=== PATIENT | female | born 1980 | race Caucasian/White ===

== ENCOUNTER 2020-05-20 11:41 | Observation (INO) | payer MEDICAID, SELFPAY ==
--- NOTE | 2020-05-17 14:10 | PCM.HPOB.BLA ---
- Problem List (1) Menorrhagia Status: Acute History and Physical Date of Admission: 05/20/20 DATE OF SERVICE: May 11, 2020 ? PROBLEM:?RLQ pain, menorrhagia with irregular cycle ? DIAGNOSIS:?Pelvic pain and DUB ? PAST SURGICAL HISTORY:? PAST SURGICAL HISTORY PAST SURGICAL HISTORY Procedure Laterality Date ? CONIZATION OF CERVIX, LEEP ? ? ? S IMPLANT CONTROL ESSURE ? ? ? TOOTH EXTRACTION ? ? ? PAST MEDICAL HISTORY:? PAST MEDICAL HISTORY PAST MEDICAL HISTORY Diagnosis Date ? Low blood sugar ? ? SUBJECTIVE:?Patient reports menorrhagia with irregular cycle. Currently no vaginal bleeding. She has had constant RLQ pain that is daily.? ? SOCIAL HISTORY:? SOCIAL HISTORY Social History ? Tobacco Use ? Smoking status: Current Every Day Smoker ? ? Packs/day: 1.50 ? Smokeless tobacco: Never Used Substance Use Topics ? Alcohol use: Yes ? ? Comment: social ? Drug use: No TSH 1.64 Hgb 14.7 Pelvic US showing a fibroid uterus ?10.7x5.9x7.1 cm in size. Largest fibroid is 4 cm. There is a 2.2 cm simple right ovarian cyst. ? ? OBJECTIVE: ? BP 128/90 ? Pulse 68 ? Resp 16 ? Ht 5' 3.75 (1.619 m) ? Wt 230 lb 3.2 oz (104.4 kg) ? LMP 11/22/2019 ? BMI 39.82 kg/m? ? ? HEENT: ?Normocephalic, atraumatic, Mucus membranes moist without lesions. ? NECK: ???Soft and Supple. ?No adenopathy , thyromegaly or bruits. ? SKIN: No lesions. ? CHEST: Clear to auscultation. ?No wheezes or rales. ?Good air exchange. ? HEART: Regular rate and rhythm ?No S3 or S4. ?No gallops or rubs. ? BACK: Nontender with no CVA tenderness. ? ABDOMEN: Soft, non-tender, non-distended, no masses, no hepatosplenomegaly. ? LOWER EXTREMITIES: There was no pitting edema, no palpable cords and no skin changes. ? ? ? ASSESSMENT: ? PLAN:?Recommended medical management for menorrhagia. Patient declines medical management. Discussed that a hysterectomy may not improve her pelvic pain, and could actually worsen the pain due to adhesions. Discussed that a 2.2 cm simple ovarian cyst is most likely a normal physiologic finding, and the cyst has likely resolved at this point. Reviewed risks of oophorectomy, and recommend ovarian preservation. Patient desires a right oophorectomy if there is a cyst present given her persistent RLQ pain. Discussed ANITA TOMLINSON, cysto, possible oophorectomy. The?rationale for the proposed surgery was discussed in addition to risks, benefits, and alternatives. ?General pre- and post-operative care was reviewed. ?Questions were answered. ?After discussion, the patient indicated a desire to proceed with the planned surgery. ? Melani Taylor,?DO
[2020-05-20] VITALS (9 sets, daily range): BP systolic 112–135; BP diastolic 64–90; PULSE 63–74; RESP 16–18; TEMP 36.3–37; O2SAT 96–100; BMI 40.1
--- NOTE | 2020-05-20 | HYST_PTH ---
PATIENT: THONY LÓPEZ LOC: MS3 U#:[id number] AGE/SX: 39/F ROOM: MS312 RE05/20/[address]: Dr. Melani Taylor DO : 1980 BED: 1 DIS: 05/21/2020 SPEC #: [id number] RECD: 05/20/20 12:42 STATUS: JETT REAnjelica #: [id number] SANTA: 05/20/20 00:[address]: Melani Taylor DEPT: SURGICAL PATHOLOGY RECD BY: Cholo Weinstein ENTERED: 05/21/20 08:37 SP TYPE: HYSTERECT OTHR DR: Dr. Mimi Garibay DO Tissues: Uterus, NOS Procedures: Surgery Specimen Level V HEADER OPERATION: ERAS, laparoscopic vaginal hysterectomy, salpingectomy, cystoscopy PRE-OP DIAGNOSIS: Menorrhagia TISSUE SUBMITTED: Uterus, cervix, bilateral fallopian tubes MICROSCOPIC DIAGNOSIS Uterus, cervix, bilateral fallopian tubes, vaginal hysterectomy and bilateral salpingectomy: Cervix - mild chronic cystic cervicitis. Endometrium - proliferative endometrium. Myometrium - intramural leiomyomas (largest measuring 4 cm in greatest dimension). Bilateral fallopian tubes - no pathologic diagnosis. BARAK:melo 05/24/20 MICROSCOPIC DESCRIPTION Slides are reviewed. GROSS DESCRIPTION Received in fixative is one container labeled with the patient's name and designated uterus. The specimen consists of a uterus with attached cervix measuring 11.5 x 6 x 6 cm and weighing 216 gm. Also present free in the container are two fallopian tubes with fimbriated ends with average lengths of 6.5?cm and average diameters of 0.6 cm. The fallopian tubes are not designated. Essure devices are present in the proximal portions of the fallopian tubes and are intact. The fallopian tubes do not contain mass lesions. The endocervical canal measures 3 cm in length and is grossly unremarkable. The elongated endometrial cavity measures 4 x 3.5 cm. The reddish-jacinto endometrium measures up to 0.1 cm in thickness. The myometrium measures 3 cm in greatest thickness and is distorted by multiple spherical nodules ranging in size from 0.2 to 4 cm in greatest dimension. The nodules reveal a whorled appearance without areas of cyst formation or necrosis. [employer] sections are submitted in 11 cassettes as follows: 1 - anterior cervix, 2 - posterior cervix, 3 & 4 - anterior uterine wall, 5 & 6 - posterior uterine wall, 7 - largest myometrial mass, 8 - second largest myometrial mass, 9 - smaller myometrial masses, 10??one fallopian tube, 11 - the other fallopian tube. / AM:melo 05/21/20 TC:2 CPT: 14304
--- NOTE | 2020-05-20 06:33 | EKG12_ITS ---
Test Reason : PRE OP Blood Pressure : / mmHG Vent. Rate : 077 BPM Atrial Rate : 077 BPM P-R Int : 144 ms QRS Dur : 086 ms QT Int : 392 ms P-R-T Axes : 000 042 034 degrees QTc Int : 443 ms Normal sinus rhythm Normal ECG No previous ECGs available Confirmed by RAMÍREZ RUIZ, JAKOB ([id number]), rewrite editor BRANNON BARRAGAN ([id number]) on 05/24/2020 1:31:25 PM Referred By: Melani Taylor Confirmed By:JAKOB ELMORE MD
[2020-05-20 06:56] LABS: Internal QC Validated? YES +Cl - CLEAR BKGD; Pregnancy, Urine Negative Negative
[2020-05-20 07:12] LABS: Hematocrit 44.1 % (37-47); Hemoglobin 14.7 g/dL (12.0-15.0); Mean Corp Hgb Conc 33.3 g/dL (32-36); Mean Corpuscular Hgb 34.1 pg (27.0-32.0); Mean Corpuscular Volume 102.3 fL (81-99); Platelet Count 255 K/mm3 (150-450); RBC Distribution Width CV 13.2 % (11.6-14.6); RBC Distribution Width SD 49.9 fl (35.1-43.9); Red Blood Count 4.31 M/mm3 (4.2-5.4); White Blood Count 12.5 K/mm3 (4.4-11.0)
[2020-05-20 07:21] LABS: Magnesium 1.9 mg/dL (1.6-2.6)
[2020-05-20] MEDS: Phenazopyridine 95 MG Tablet 190 MG PO (07:32)
[2020-05-20] MEDS: Celecoxib 200 MG Capsule 400 MG PO (07:32)
[2020-05-20] MEDS: Gabapentin 600 MG Tablet PO (07:32)
[2020-05-20] MEDS: Acetaminophen 500 MG Tablet 1000 MG PO ×3 (07:33→17:05)
[2020-05-20] MEDS: Scopolamine 1mg/72hr Patch 1 PATCH TRANSDERM. (07:34)
[2020-05-20] MEDS: Enoxaparin 40 MG/0.4 ML Syringe SC (07:35)
[2020-05-20 07:51] LABS: Bedside Glucose 84 mg/dL (70-110)
[2020-05-20] MEDS: Lactated Ringers 1,000 ML 40 ML IV ×2 (08:13→13:44)
[2020-05-20] MEDS: dexAMETHasone 10 MG/ML Vial 8 MG IV (08:13)
[2020-05-20] MEDS: Cefazolin 2 GM in 0.9% Normal Saline 100 ML IV (08:30)
[2020-05-20] MEDS: Bupivacaine Mpf 0.5% 30 ML VIAL (09:01)
[2020-05-20] MEDS: Lubricating Jelly 60 GM Tube 30 GM TOPICAL (09:01)
[2020-05-20] MEDS: Lactated Ringers 1,000 ML 70 ML IV (11:40)
[2020-05-20] MEDS: Ondansetron 4 MG/2 ML Vial IV (11:40)
--- NOTE | 2020-05-20 11:43 | PCM.OPRPT ---
Problem List (1) Menorrhagia Status: Acute (2) Uterine fibroid Status: Acute (3) Pelvic pain Status: Acute Report of Operation Date of Procedure: 05/20/20 Pre-Operative Diagnosis: Menorrhagia, uterine fibroids, pelvic pain Post-Operative Diagnosis: As above Surgery/Procedure Performed:: TLH, BS, cysto Description of Surgical Findings:: Uterus was enlarged with multiple fibroids present. The bilateral ovaries and bilateral fallopian tubes were normal-appearing. The appendix was normal-appearing. The pelvis was normal-appearing. Normal bladder with bilateral ureteral jets noted. resort housekeeper: Sandra Kaiser Type of Anesthesia:: General Anesthesiologist: None Special Medications: None Specimen's removed: Uterus, cervix, bilateral fallopian tubes Drains: Mayo Estimated Blood Loss (mL): 400 Fluids Replaced: 1500 Description of Procedure: The patient was taken to the operating room where general anesthesia was induced. The patient was placed in dorsal lithotomy position using yellowfin stirrups. The patient was prepped and draped in the usual sterile fashion. Beginning at the vagina, a Mayo catheter was inserted under sterile conditions. A weighted speculum was placed to expose the cervix. The cervix was grasped anteriorly with a single-tooth tenaculum. The uterus sounded to 10 cm. Urine manipulator with a cup was inserted. The weighted speculum and tenaculum were then removed. Gloves were changed and attention was turned to the abdominal portion of the case. Local was infiltrated at all port sites. Beginning in the subumbilical area, the skin was first infiltrated and then a 5 mm incision was made through the skin. A 5 mm trocar was placed using direct visualization with the laparoscope. It was confirmed that entry was made into the peritoneal cavity, and CO2 insufflation was initiated. Examination of the peritoneal cavity revealed no signs of injury from entry. See findings as noted above. The patient was then placed in steep Trendelenburg and three more 5 mm trochars were placed, one on the right and 2 on the left in usual fashion. All trocars were placed under direct visualization. The uterus was upheld from below and revealed an enlarged fibroid uterus and normal tubes and ovaries. Beginning on the right side the fallopian tube was lifted towards the anterior abdominal wall to expose the mesosalpinx. Working from distal to proximal to mesosalpinx was sequentially clamped, ligated, and cut using the LigaSure device from distal to proximal in the direction of the cornua. Once the cornea was reached the tube was ligated and cut and removed through the port. Following this, the utero-ovarian ligament was clamped, sealed, and cut the ovarian pedicle was inspected to ensure that there was no bleeding from the edges. Attention was then turned to the other side. Same process was repeated on the left sequentially clamping, ligating, and cutting mesosalpinx being sure to not injure adjacent ovarian tissue or other surrounding structures. The round ligament was then ligated and cut. Following this the anterior leaf of the broad ligament was then taken down on the right side dissecting towards the peritoneal reflection at the base of the bladder and adjacent to the cervix. The process was repeated on the left side side until both sides met and the anterior leaflet was appropriately skeletonized. Once the bladder was appropriately dissected free from the lower anterior uterine segment and the tissue was skeletonized, the uterine arteries were bilaterally clamped and ligated. Pedicles were checked and hemostatic. At the level of the cup of the uterine manipulator, the vaginal vault was incised circumferentially with a monopolar hook. Visualization was difficult posteriorly given the anterior fibroid that was present which was limiting the manipulation of the uterus. Attention was then turned below. There was a very small piece of tissue remaining posteriorly along the vaginal vault which was clamped with a Zara, cut, and suture-ligated. The uterus, cervix, tubes were delivered through the vagina and sent to pathology for review. Bleeding was noted from the left angle and a lahdzf-wo-ldwnn suture was placed. The posterior cuff was run with Vicryl in a running locked fashion. The vaginal vault was then closed from below using 0 Vicryl in an interrupted fashion. The vaginal cuff appeared hemostatic. A cystoscopy was performed noting a normal-appearing bladder with bilateral ureteral jets noted. Gloves were changed and then attention was turned to the abdominal portion of the case again. The pelvis was irrigated and suctioned. Along the left side of the cuff there was some bleeding noted which was cauterized. Hemostasis was then noted. Arrista was placed over the pedicles and cuff. Hemostasis was noted. The abdomen was exsufflated and all ports were removed. All incision sites were then closed with 4-0 Monocryl suture in a subcuticular fashion. At the end of the procedure all sponge, instrument, shock sharp counts were correct. The patient was taken to recovery room in stable condition. Grafts/Implants Used: None - Complications None - Admit VTE Documentation VTE Present on Admission: No VTE Mechan Device Prophylaxis: SCD's
[2020-05-20] MEDS: Ketorolac 30 MG/ML Syringe IV ×2 (13:45→17:05)
[2020-05-20] MEDS: oxyCODONE 5 MG Tablet PO (20:56)
[2020-05-20] MEDS: Docusate Sodium 100 MG Capsule PO (20:57)
[2020-05-21] MEDS: Acetaminophen 500 MG Tablet 1000 MG PO ×2 (00:28→08:53)
[2020-05-21] MEDS: 0.9% Saline Lock 10 ML Syringe IV ×2 (00:28→05:34)
[2020-05-21] MEDS: Ketorolac 30 MG/ML Syringe IV ×2 (00:29→05:33)
[2020-05-21 00:44] VITALS: BP 127/76; PULSE 69; RESP 16; TEMP 36.8; O2SAT 97
[2020-05-21 05:46] VITALS: BP 148/67; PULSE 80; RESP 14; TEMP 36.8; O2SAT 96
[2020-05-21 06:50] VITALS: O2SAT 96
[2020-05-21 07:05] LABS: Hematocrit 35.7 % (37-47); Hemoglobin 11.7 g/dL (12.0-15.0); Mean Corp Hgb Conc 32.8 g/dL (32-36); Mean Corpuscular Hgb 34.2 pg (27.0-32.0); Mean Corpuscular Volume 104.4 fL (81-99); Mean Platelet Vol. 11.2 fl (6.2-12.0); Platelet Count 215 K/mm3 (150-450); RBC Distribution Width CV 13.5 % (11.6-14.6); RBC Distribution Width SD 51.5 fl (35.1-43.9); Red Blood Count 3.42 M/mm3 (4.2-5.4); White Blood Count 18.7 K/mm3 (4.4-11.0)
--- NOTE | 2020-05-21 07:50 | PN.OBGYN_ITS ---
Patient Problems: Active and Suspected Problems Uterine fibroid (Acute) Pelvic pain (Acute) Subjective: Patient is doing well. Ambulating in the hallway without lightheadedness or dizziness. Kenan reg diet without N/V. Spont voiding without difficulty. No CP, SOB, leg pain. Pain well controlled. She desires to go home today. - Physical Exam Vitals/I&O's: Vital Signs Temp Pulse Resp BP Pulse Ox 98.2 F 80 14 148/67 H 96 05/21/20 05:46 05/21/20 05:46 05/21/20 05:46 05/21/20 05:46 05/21/20 05:46 Oxygen Flow Rate (L/min) 6 Oxygen Delivery Method Room Air Weight: 231 lb 11.293 oz Body Mass Index (BMI) 40.1 Intake and Output for Last 24 Hours 05/19/20 05/20/20 05/21/20 23:59 23:59 23:59 Intake Total 1361.83 / 1361.83 1026.00 / 1026.00 Output Total 960 / 2185 1500 / 1500 Balance 401.83 / -823.17 -474.00 / -474.00 General: Alert, No apparent distress, - - Sitting up in chair Abdomen: Soft, Non-Distended, - - ATTP, non-acute Extremities: No edema, No Calf Tenderness Skin: No rashes Neurological: Neuro grossly intact Psych/Mental Status: Normal Affect, Appropriate Laboratory Results 05/20/20 06:50: Blood Type A POSITIVE, Antibody Screen NEGATIVE 05/20/20 07:16: POC Glucose 84 05/21/20 06:38: WBC 18.7 H, RBC 3.42 L, Hgb 11.7 L, Hct 35.7 L, MCV 104.4 H, MCH 34.2 H, MCHC 32.8, RDW Std Deviation 51.5 H, RDW Coeff of Sheldon 13.5, Plt Count 215, MPV 11.2 Current Medications Acetaminophen (Tylenol) 1,000 mg PO Q6 REPLACED BY [facility] Last Admin: 05/21/20 00:28 Dose: 1,000 mg Documented by: Docusate Sodium (Colace) 100 mg PO BID REPLACED BY [facility] Last Admin: 05/20/20 20:57 Dose: 100 mg Documented by: Enoxaparin Sodium (Lovenox) 40 mg SC DAILY REPLACED BY [facility] Lactated Ringer's () 1,000 mls @ 40 mls/hr IV .Q25H CHAU Stop: 05/21/20 13:04 Last Infusion: 05/21/20 06:38 Dose: 40 mls/hr Documented by: Ketorolac Tromethamine (Toradol (Bkc)) 30 mg IV Q6 [facility]AU Stop: 05/21/20 18:01 Last Admin: 05/21/20 05:33 Dose: 30 mg Documented by: Magnesium Oxide (Mag-Ox 400) 400 mg PO DAILY PRN PRN PRN Reason: Constipation Nutritional Formula (Lactose Free) (Ensure Enlive) 120 ml PO TIDCM REPLACED BY [facility] Ondansetron HCl (Zofran Odt) 4 mg PO Q6H PRN PRN PRN Reason: NAUSEA Oxycodone HCl (Oxyir) 5 - 10 mg PO Q4H PRN PRN PRN Reason: Pain Score 4-10/10 Last Admin: 05/20/20 20:56 Dose: 5 mg Documented by: Sodium Chloride () 10 - 40 ml IV UD PRN PRN Reason: SALINE FLUSH Last Admin: 05/21/20 05:34 Dose: 10 ml Documented by: Medical Necessity - Tobacco Use Smoking Status: Current every day smoker Tobacco Use: Cigarettes Assessment/Plan All Active Problems Menorrhagia (Acute) Uterine fibroid (Acute) Pelvic pain (Acute) POD#1 s/p TLH, BS, cysto - Doing well - HDS - CBC reviewed - Pt desires to go home today and is meeting all milestones to go home. D/c instructions reviewed. Has follow up scheduled in office
--- NOTE | 2020-05-21 07:55 | DCINST_ITS ---
Discharge Diet: No Restrictions Discharge Activity: May not drive while taking narcotic pain medications., May Shower Return to work on:: 07/01/20 - can return at 4 wks with restrictions May resume sexual activity in: 6 weeks - Nothing in the vagina for 6 weeks - this includes no hot tubs, baths, pools, tampons, intercourse Weight Bearing Status: Weight bearing as tolerated Lifting Restrictions: No heavy lifting > 5-10 lbs for 6 weeks Call your doctor if your incision/area has: Increased Pain/ Swelling, Increased Redness, Foul Smelling Discharge, Swelling at the incision site Call your doctor if you observe: Fever of 101 or Higher, Change in Color, Inability to urinate, Inability to have a bowel movement, Using more than one pad per hour - If your vaginal bleeding increases please call. It should be light bleeding, Shortness of breath, Dizziness, Fainting spells, Chest pain, Increased palpitations (irregular heartbeat), Calf discomfort, Uncontrolled pain Suture Line Care: Avoid Pulling/Pushing, Avoid Pinching/Bending Cleanse incision/area with: Soap & Water Allergies/Adverse Reactions: Allergies No Known Allergies Allergy (Verified 05/20/20 07:20) Medications to take at Discharge Truvy 2 tab PO BID 05/13/20 Ibuprofen 200 mg PO Q6H PRN PRN 05/20/20 Docusate Sodium [Colace] 100 mg PO BID PRN PRN #30 cap 05/21/20 Ibuprofen [Motrin] 800 mg PO TID PRN PRN #30 tab 05/21/20 Oxycodone HCl/Acetaminophen [Percocet 5/325] 1 tablet PO Q6H PRN PRN 7 Days #20 tablet 05/21/20 The following prescriptions were given: Docusate Sodium [Colace] 100 mg PO BID PRN PRN #30 cap PRN Reason: Constipation Transmission Status: Pending to [facility] Ibuprofen [Motrin] 800 mg PO TID PRN PRN #30 tab PRN Reason: Pain Score 1-1010 Transmission Status: Pending to [facility] Oxycodone HCl/Acetaminophen [Percocet 5/325] 1 tablet PO Q6H PRN PRN 7 Days #20 tablet PRN Reason: Pain Score 6-10/10 Transmission Status: Sent to [facility] Primary Care Physician: Mimi Garibay DO [Primary Care Provider] - Test Results: Test results from this visit will be discussed in further detail at your follow- up appointment, if applicable. Please Follow Up With: Melani Taylor DO When: 1-2 weeks and then 6 weeks
[2020-05-21 09:45] VITALS: BP 148/83; PULSE 71; RESP 18; TEMP 36.8; O2SAT 98
== END 2020-05-21 10:00 | disposition home or self-care (01) ==
LOC: SDC 12:17 → MS3 12:17
PROVIDERS: Anesthesiology; Admitting Provider Obstetrics & Gynecology; PCP Internal Medicine; Referring Provider Obstetrics & Gynecology; Visit Provider Obstetrics & Gynecology
PROC: 0UT9FZZ Resection of Uterus, Via Natural or Artificial Opening With Percutaneous Endoscopic Assistance (ICD-10-PCS; CPT 58571; principal; 2020-05-20 08:25)
DX: D25.1 Intramural leiomyoma of uterus (principal); Z11.59 Encounter for screening for other viral diseases; N92.1 Excessive and frequent menstruation with irregular cycle; F17.210 Nicotine dependence, cigarettes, uncomplicated
CPT/HCPCS: 00940; 58571; 36415; 81025; 82962; 83735; 85027; 86850; 86900; 86901; 87635; 88307; 93005; 96374; 96376; 99218; 99251; 99406; G2023; J7120; A4216; G0378; G0379; G0463; J2405; U0003

== ENCOUNTER → 2022-09-11 | Outpatient (CLI) | payer MEDICAID, SELFPAY ==
[2022-09-11 10:36] LABS: Erythrocyte Sedimentation Rate 8 mm/hr (0-30)
[2022-09-11 10:38] LABS: Absolute Lymphocyte Count 2.81 X10^3/uL (0.83-4.51); Basophil# 0.09 X10^3/uL; Basophil% 0.7 % (0-1); Eosinophil# 0.22 X10^3/uL; Eosinophils% 1.8 % (0-5); Hematocrit 47.8 % (37-47); Hemoglobin 16.7 g/dL (12.0-15.0); Lymphocyte # 2.81 X10^3/ul (0.83-4.51); Mean Corp Hgb Conc 34.9 g/dL (32-36); Mean Corpuscular Hgb 34.2 pg (27.0-32.0); Mean Platelet Vol. 11.8 fl (6.2-12.0); Monocyte% 8.2 % (0-10); NRBC Flagged by Analyzer 0 % (0-5); Neutrophil # 8.03 X10^3/uL (2.7-7.7); Neutrophil % 65.9 % (47-70); Platelet Count 245 K/mm3 (150-450); RBC Distribution Width CV 13.2 % (11.6-14.6); RBC Distribution Width SD 48.1 fl (35.1-43.9); Red Blood Count 4.88 M/mm3 (4.2-5.4); White Blood Count 12.2 K/mm3 (4.4-11.0)
[2022-09-11 10:55] LABS: ALB/GLOB Ratio 1.2 RATIO (0.9-2.4); AST(SGOT) 16 U/L (15-37); Alanine Aminotransfer ALT/SGPT 20 U/L (13-56); Albumin, Serum 3.9 g/dL (3.2-5.0); Alkaline Phosphatase 63 U/L (45-117); Anion Gap 9 (5-15); BUN 9 mg/dL (7-18); BUN/Creat Ratio 14.8 RATIO (10-20); CRP < 2.90 mg/L (0.0-3.0); Chloride 102 mmol/L (98-107); Creatinine, Serum 0.61 mg/dL (0.55-1.02); EST Glomerular Filtration Rate 115 mL/min (>60); Est Glom Filt Rate - Afr Amer 139 mL/min (>60); Globulin 3.3 g/dL (2.2-4.2); Glucose 98 mg/dL (74-106); LDH 170 U/L (84-246); Protein, Total 7.2 g/dL (6.4-8.2); Sodium Level 139 mmol/L (136-145)
[2022-09-12 15:02] LABS: Anti-Centromere B Ab <0.2 AI (0.0-0.9); Anti-Chromatin <0.2 AI (0.0-0.9); Anti-Jo <0.2 AI (0.0-0.9); Anti-Scleroderma-70 AB <0.2 AI (0.0-0.9); RNP Ab <0.2 AI (0.0-0.9); SJOGREN'S Anti-SS-A test < 0.2 AI (0.0-0.9); SJOGREN'S Anti-SS-B test < 0.2 AI (0.0-0.9); Smith Ab <0.2 AI (0.0-0.9)
[2022-09-12 15:07] LABS: Endomysial Antibody IgA Negative (Negative)
[2022-09-12 16:31] LABS: Anti-dsDNA Ab 1 IU/mL (0-9)
[2022-09-14 15:45] LABS: Immunoglobulin A 265 mg/dL (87-352); t-Transglutaminase IgA <2 U/mL (0-3)
[2022-09-19 16:09] LABS: Albumin 4.1 g/dL (2.9-4.4); Alpha-1-Globulins 0.3 g/dL (0.0-0.4); Alpha-2-Globulins 0.7 g/dL (0.4-1.0); Cytoplasmic Ab (C-ANCA) <1:20 titer (Neg:<1:20); Gamma Globulin 1.1 g/dL (0.4-1.8); Immunoglobulin A 252 mg/dL (87-352); Immunoglobulin E 28 IU/mL (6-495); Immunoglobulin G 871 mg/dL (586-1602); Immunoglobulin M 200 mg/dL (26-217); PROEL- TOTAL PROTEIN 7.3 g/dL (6.0-8.5)
[2022-09-20 19:54] LABS: Perinuclear Ab (P-ANCA) <1:20 titer (Neg:<1:20)
== END | disposition home or self-care (01) ==
PROVIDERS: PCP Internal Medicine; Referring Provider Nurse Practitioner Adult Health; Visit Provider Nurse Practitioner Adult Health
DX: K52.9 Noninfective gastroenteritis and colitis, unspecified (principal); R10.9 Unspecified abdominal pain; R12 Heartburn
CPT/HCPCS: 36415; 80053; 82784; 82785; 83516; 83615; 84165; 85025; 85652; 86140; 86225; 86235; 86255; 86256; 86334

== ENCOUNTER → 2022-09-20 | Outpatient (CLI) | payer MEDICAID, SELFPAY ==
--- NOTE | 2022-09-20 15:14 | CT_ITS ---
STUDY: CT ABDOMEN AND PELVIS WITH CONTRAST REASON FOR EXAM: Female, 42 years old. Lower abd pain, diarrhea -- RADIATION DOSAGE (If Supplied By Facility): CTDIvol = ( 16.07 ) mGy, DLP = ( 1091.21 ) mGycm TECHNIQUE: Transaxial images were obtained from the dome of the diaphragm to the symphysis pubis with oral and intravenous contrast. 100mL Isovue-370 was administered. Sagittal and coronal images were reconstructed. Individualized dose optimization techniques were used for this CT. COMPARISON: None. FINDINGS: The visualized lung bases are unremarkable. The visualized portions of the heart are within normal limits. Normal liver. There are surgical clips in the gallbladder fossa consistent with a prior cholecystectomy. Normal spleen. Normal pancreas. Normal bilateral adrenal glands. There is 0.6 cm stone at the upper pole of the right kidney. Normal left kidney. Normal visualized stomach. Normal small intestine. Normal colon. The appendix is visualized and appears normal. There is atherosclerotic calcification of the abdominal aorta, without a demonstrated aneurysm. Normal inferior vena cava. There is 4.1 x 2.1 cm increased density mass in the left retroperitoneum adjacent to the iliopsoas Normal urinary bladder. Normal visualized uterus. There is no free fluid in the abdomen or pelvis. Normal abdominal wall. Normal osseous structures. CT/Abdomen/Pelvis WITH Contrast IMPRESSION: Right renal stone. No hydronephrosis. Left retroperitoneal mass with possible prior hematoma versus lymphadenopathy. No obstruction. Electronically Signed: Gianni Jackson MD at 22:14 EST ,
[2022-09-24 10:30] LABS: Calprotectin, Stool <16 ug/g (0-120)
== END | disposition home or self-care (01) ==
PROVIDERS: PCP Internal Medicine; Referring Provider Nurse Practitioner Adult Health; Visit Provider Nurse Practitioner Adult Health
DX: K52.9 Noninfective gastroenteritis and colitis, unspecified (principal); R10.9 Unspecified abdominal pain; R12 Heartburn
CPT/HCPCS: 74177; 83630; 83993; 87177; 87209; 87493; 87506; Q9967

== ENCOUNTER 2022-10-31 13:51 | Day surgery (SDC) | payer MEDICAID, SELFPAY ==
[2022-10-31] VITALS (7 sets, daily range): BP systolic 117–162; BP diastolic 79–99; PULSE 61–73; RESP 16; TEMP 20–36.6; O2SAT 96–99; BMI 36.3
[2022-10-31] MEDS: Lactated Ringers 1,000 ML 15 ML IV (14:30)
--- NOTE | 2022-10-31 15:13 | PCM.HP.BLA ---
History and Physical Date of Admission: 10/31/22 42 F who presents to the office today for chronic diarrhea. Multiple GI symptoms for past 2 yrs, some of which resolved with recent cholecystectomy.? She had nausea, vomiting multiple times a week of undigested food, epigastric pressure, early satiety.? Gallbladder ultrasound was normal, HIDA scan was abnormal, she had cholecystectomy on 08/09/2022.? Since the cholecystectomy she has only occasional, mild or nausea.? She no longer has any vomiting or epigastric pain.? She does have increased heartburn, it was partially controlled on omeprazole 40 mg daily but she ran out of the medication.? She does continue to have diarrhea and lower abdominal pains.? The lower abdominal pains can be crampy or sharp, they can radiate around both sides to the lower back.? She does get personal or temporary relief of the pain with a bowel movement.? She has had a few formed stools since having the cholecystectomy, which is an improvement.? Otherwise she has diarrhea, the stool is watery or loose and often has mucus.? She has not seen any blood with the bowel movements.? Diarrhea can be urgent, it has woken her up in the night, and she has had a few episodes of fecal incontinence due to the urgency.? Since the cholecystectomy she does not tolerate pizza.? Denies dysphagia.? She does still have early satiety.? She eats just small meals.? Only medication she takes is as needed ibuprofen.? She works as a medical records secretary.? She is a smoker. 05/2021 CT abd pel with IV contrast: solitary nonobstructing right renal calculus Aunt and grandmother have diverticulitis. Grandmother also had pancreatic cancer. Daughter diagnosed with DMI at age 16, was briefly on insulin, now 19 and being further evaluated since she doesn't need any meds currently for DM. ROS Const Constitutional: Positive for fatigue ENT ENT: No difficulty swallowing Gastro GI: Positive for abdominal pain, change in bowel habits, diarrhea, heartburn and nausea/dyspepsia; No belching, bloating, change in stool character, coffee ground emesis, constipation, cramping, difficulty swallowing, feeling full early, excessive flatus, incontinent of stools, Vomiting blood/hematemesis, Blood in stool, loose stools, Black,tarry stools, pain with swallowing, vomiting or other Musc Musculoskeletal: Positive for numbness and tingling; No joint pain Skin Skin: No yellowing of the eye or itchy eyes Neuro Neurology: Positive for numbness and tingling Psych Psychiatric: No anxiety and No depression Endo Endocrine: Positive for fatigue Aller/Imm Allergy/Immunologic: No itchy eyes Talha/Lymp Hematologic/Lymphatic: No easy bleeding or easy bruising Exam Const General: cooperative, comfortable and no acute distress Nutritional Appearance: obese Orientation: alert, awake and oriented x3 HENMT Head: normal to inspection Eyes General: appearance normal, both eyes and all related structures Resp Effort & Inspection: normal respiratory effort GI Inspection: normal to inspection and scar (Healed laparoscopy scars from recent cholecystectomy) Palpation: soft, no hepatosplenomegaly, no masses and tender in the LLQ and in the RLQ Skin General: no rashes or lesions noted Neuro Gait: normal gait Quality Reporting Tobacco Screening ([facility] 138) Smoking Status: Current every day smoker Assessment and Plan Assessment and Plan (1) Chronic diarrhea: ?Status:?Chronic ?Plan: 42 yr old female with chronic diarrhea and lower abd pain, unintended weight loss. Chronic nausea is improved since having cholecystectomy recently, and vomiting has resolved. She also has heartburn. ?gastroparesis. DDx includes gastritis, duodenitis, bile acid diarrhea, infection, IBD, microscopic colitis, malignancy. Blood and stool tests ordered, will call her with results and plan Start cholestyramine qpm, can add morning dose too if needed Consider dicyclomine Resume PPI Schedule upper and lower endoscopy, office f/u 2 wks later (2) Abdominal pain: ?Status:?Acute ?Plan: as above (3) Heartburn: ?Status:?Acute ?Plan: as above ? ? ? Orders: Orders Comprehensive Metabolic Profil Today K52.9 - Noninfective gastroenteritis and colitis, unspecified, R10.9 - Unspecified abdominal pain, R12 - Heartburn ? CRP Today K52.9 - Noninfective gastroenteritis and colitis, unspecified, R10.9 - Unspecified abdominal pain, R12 - Heartburn ? LDH Today K52.9 - Noninfective gastroenteritis and colitis, unspecified, R10.9 - Unspecified abdominal pain, R12 - Heartburn ? CBC W/Diff, Automated Today K52.9 - Noninfective gastroenteritis and colitis, unspecified, R10.9 - Unspecified abdominal pain, R12 - Heartburn ? Erythrocyte Sed Rate Today K52.9 - Noninfective gastroenteritis and colitis, unspecified, R10.9 - Unspecified abdominal pain, R12 - Heartburn ? MAYRA Comprehensive Panel Today K52.9 - Noninfective gastroenteritis and colitis, unspecified, R10.9 - Unspecified abdominal pain, R12 - Heartburn ? Calprotectin, Stool Today K52.9 - Noninfective gastroenteritis and colitis, unspecified, R10.9 - Unspecified abdominal pain, R12 - Heartburn ? CDIFF (PCR) Today K52.9 - Noninfective gastroenteritis and colitis, unspecified, R10.9 - Unspecified abdominal pain, R12 - Heartburn ? ENTERIC PATHOGEN PANEL STOOL Today K52.9 - Noninfective gastroenteritis and colitis, unspecified, K58.9 - Irritable bowel syndrome without diarrhea, R10.9 - Unspecified abdominal pain, R12 - Heartburn ? Stool Lactoferrin/WBC Today K52.9 - Noninfective gastroenteritis and colitis, unspecified, R10.9 - Unspecified abdominal pain, R12 - Heartburn ? ANCA Today K52.9 - Noninfective gastroenteritis and colitis, unspecified, R10.9 - Unspecified abdominal pain, R12 - Heartburn ? Celiac Disease Profile Today K52.9 - Noninfective gastroenteritis and colitis, unspecified, R10.9 - Unspecified abdominal pain, R12 - Heartburn ? Immunoglobulins G/A/M/E Today K52.9 - Noninfective gastroenteritis and colitis, unspecified, R10.9 - Unspecified abdominal pain, R12 - Heartburn ? FERN + Protein Elect, Serum Today K52.9 - Noninfective gastroenteritis and colitis, unspecified, R10.9 - Unspecified abdominal pain, R12 - Heartburn ? Ova and Parasites 8623 Today K52.9 - Noninfective gastroenteritis and colitis, unspecified, K58.9 - Irritable bowel syndrome without diarrhea, R10.9 - Unspecified abdominal pain, R12 - Heartburn ? Abdomen/Pelvis WITH Contrast Today K52.9 - Noninfective gastroenteritis and colitis, unspecified, R10.9 - Unspecified abdominal pain ? Medications: New cholestyramine (with sugar) 4 gram ?? administer w/meal; avoid other meds within 1hr before or 4-6hr after dose 4 grams? PO BID 378 grams 1RF ? ? omeprazole 40 mg? PO QAM 90 caps 1RF ? ? I have examined the patient and the H&P has been reviewed. There are no clinical changes since date of exam.
--- NOTE | 2022-10-31 15:15 | EGD_PTH ---
PATIENT: THONY LÓPEZ LOC: EN U#:[id number] AGE/SX: 42/F ROOM: RE10/31/[address]: Dr. Vinicius Paniagua DO : 1980 BED: DIS: 10/31/2022 SPEC #: [id number] RECD: 10/31/22 18:00 STATUS: JETT MANAV #: [id number] SANTA: 10/31/22 15:[address]: Vinicius Paniagua DEPT: SURGICAL PATHOLOGY RECD BY: Vy Parker ENTERED: 11/01/22 08:55 SP TYPE: EGD BIOPSY OT DR: Dr. Mimi Garibay, DO Tissues: A - Duodenum, NOS B - Gastric mucous membrane C - Gastric mucous membrane D - Esophagus, NOS E - Ileum, NOS F - COLON BIOPSY G - COLON BIOPSY Procedures: Special Stain Group II Surgery Specimen Level IV Alcian Blue/PAS (control) HEADER OPERATION: Colonoscopy with biopsy, [place] [place] DIAGNOSIS: Chronic diarrhea TISSUE SUBMITTED: A ? Duodenum biopsy, B ? Antrum biopsy for H. pylori and path, C ? Gastric body biopsy, D ? Distal esophagus biopsy, E ? Terminal ileum biopsy, F ? Random colon biopsy, G ? Splenic flexure polyp biopsy MICROSCOPIC DIAGNOSIS A. Duodenum, biopsy: Fragments of duodenal mucosa, no pathologic diagnosis. B. Antrum, biopsy: Mild gastritis. See microscopic description and comment. C. Gastric body, biopsy: Mild gastritis. See comment. D. Distal esophagus, biopsy: Fragments of gastroesophageal mucosa with chronic inflammation. Intestinal metaplasia (goblet cell metaplasia) not identified. See comment. E. Terminal ileum, biopsy: Fragments of small intestinal mucosa, no pathologic diagnosis. F. Colon, random biopsy: Fragments of colonic mucosa, no pathologic diagnosis. G. Splenic flexure polyp, biopsy: Tubular adenoma. SJ:rg 11/02/2022 COMMENT B. The results of immunohistochemistry for Helicobacter pylori will be reported separately ([id number]). D. Alcian blue/PAS stain with matched control is used in the evaluation of the specimen. MICROSCOPIC DESCRIPTION Slides are reviewed. B & C. The specimen shows fragments of gastric mucosa with chronic inflammatory cell infiltrates in the lamina propria consisting of lymphocytes and plasma cells, consistent with mild chronic gastritis. GROSS DESCRIPTION A - Received in fixative is one container labeled with the patient's name and designated duodenum. The specimen consists of two irregular fragments of light jacinto soft tissue that in aggregate measure 0.6 x 0.3 x 0.1 cm. The specimen is totally submitted in one cassette. B - Received in fixative is one container labeled with the patient's name and designated antrum biopsy. The specimen consists of two irregular fragments of light jacinto soft tissue that in aggregate measure 0.5 x 0.5 x 0.1 cm. The specimen is totally submitted in one cassette. C - Received in fixative is one container labeled with the patient's name and designated gastric body. The specimen consists of one irregular fragment of light jacinto soft tissue that measures 0.5 x 0.3 x 0.1 cm. The specimen is totally submitted in one cassette. D - Received in fixative is one container labeled with the patient's name and designated biopsy distal esophagus. The specimen consists of two irregular fragments of light jacinto soft tissue that in aggregate measure 0.5 x 0.5 x 0.1 cm. The specimen is totally submitted in one cassette. E - Received in fixative is one container labeled with the patient's name and designated biopsy terminal ileum. The specimen consists of multiple irregular fragments of light jacinto soft tissue that in aggregate measure 1.5 x 0.4 x 0.1 cm. The specimen is totally submitted in one cassette. F - Received in fixative is one container labeled with the patient's name and designated biopsy random colon. The specimen consists of multiple irregular fragments of light jacinto soft tissue that in aggregate measure 2.5 x 1 x 0.1 cm. The specimen is totally submitted in one cassette. G - Received in fixative is one container labeled with the patient's name and designated biopsy splenic flexure polyp. The specimen consists of one irregular fragment of light jacinto soft tissue that measures 0.5 x 0.3 x 0.1 cm. The specimen is totally submitted in one cassette. / SJ:rg 11/01/2022 TC:1 CPT: 19494 x7, 90939
--- NOTE | 2022-10-31 15:15 | IMM_PTH ---
PATIENT: THONY LÓPEZ LOC: EN U#:[id number] AGE/SX: 42/F ROOM: RE10/31/[address]: Dr. Vinicius Paniagua DO : 1980 BED: DIS: 10/31/2022 SPEC #: [id number] RECD: 11/01/22 13:18 STATUS: JETT REQ #: [id number] SANTA: 10/31/22 15:[address]: Vinicius Paniagua DEPT: IMMUNOHISTOCHEMISTRY RECD BY: Charmaine Finley ENTERED: 11/01/22 13:19 SP TYPE: IMMUNO OTHR DR: Dr. Mimi Garibay DO Tissues: B - Stomach, NOS Procedures: H Pylori (initial) PHYSICIAN & INSTITUTION [place] [id number] SPECIMEN INFORMATION: Tissue Source: B - Antrum Clinical Info: Chronic diarrhea Specimen Number: [id number] CPT code: 54643 METHODOLOGY: Deparaffinized sections of prefer/formalin-fixed tissue or PAP/DQ stained slides are incubated with monoclonal/polyclonal antibodies/oligonucleotide probes. Localization is made via biotin free immunoperoxidase method. Appropriate controls are performed and reacted as expected. Results on target cell population are indicated in the following table: RESULTS: ANTIBODY / CLONE RESULT Block B H Pylori (polyclonal) negative These tests were developed and their performance characteristics determined by [facility]. They may not have been cleared or approved by the U.S. Food and Drug Administration. The FDA has determined that such clearance or approval is not necessary. The above immunohistochemical/dualISH markers are ordered and reviewed by the Pathologist. INTERPRETATION: B. Antrum, biopsy: Negative for Helicobacter pylori organisms. SJ:melo 11/02/2022
--- NOTE | 2022-10-31 16:24 | OP.EGD_ITS ---
Patient Name: Fiorella Núñez Procedure Date: 10/31/2022 3:40 PM Date of : 1980 Age: 42 Procedure: Upper GI endoscopy Indications: Epigastric abdominal pain Providers: Vinicius Paniagua DO Referring MD: Mimi Garibay Do Medicines: Monitored Anesthesia Care Patient Profile: This is a 42 year old female. Refer to note in patient chart for documentation of history and physical. Patient has symptoms of chronic abdominal cramping, acute epigastric abdominal pain, chronic dyspepsia and chronic nausea. Complications: No immediate complications. Procedure: Pre-Anesthesia Assessment: - Prior to the procedure, a History and Physical was performed, and patient medications and allergies were reviewed. The patient is competent. The risks and benefits of the procedure and the sedation options and risks were discussed with the patient. All questions were answered and informed consent was obtained. Patient identification and proposed procedure were verified by the physician. Mental Status Examination: normal. Prophylactic Antibiotics: The patient does not require prophylactic antibiotics. Prior Anticoagulants: The patient has taken no previous anticoagulant or antiplatelet agents. ASA Grade Assessment: II - A patient with mild systemic disease. After reviewing the risks and benefits, the patient was deemed in satisfactory condition to undergo the procedure. The anesthesia plan was to use monitored anesthesia care (MAC). Immediately prior to administration of medications, the patient was re-assessed for adequacy to receive sedatives. The heart rate, respiratory rate, oxygen saturations, blood pressure, adequacy of pulmonary ventilation, and response to care were monitored throughout the procedure. The physical status of the patient was re-assessed after the procedure. After obtaining informed consent, the endoscope was passed under direct vision. Throughout the procedure, the patient's blood pressure, pulse, and oxygen saturations were monitored continuously. The pediatric colonoscope was introduced through the mouth, and advanced to the second part of duodenum. The upper GI endoscopy was accomplished without difficulty. The patient tolerated the procedure well. Scope In: 3:52:04 PM Scope Out: 3:58:19 PM Total Procedure Duration Time 0 hours 6 minutes 15 seconds Findings: The Z-line was irregular and was found 38 cm from the incisors. Biopsies were taken with a cold forceps for histology. Verification of patient identification for the specimen was done. Estimated blood loss was minimal. Patchy mildly erythematous mucosa without bleeding was found in the cardia, in the gastric body and in the gastric antrum. Biopsies were taken with a cold forceps for histology. Verification of patient identification for the specimen was done. Estimated blood loss was minimal. No gross lesions were noted in the first portion of the duodenum. A benign-appearing, intrinsic moderate stenosis was found at the pylorus. This was traversed. A TTS dilator was passed through the scope. Dilation with a 20 mm pyloric balloon dilator was performed. The dilation site was examined and showed complete resolution of luminal narrowing. Impression: - Z-line irregular, 38 cm from the incisors. Biopsied. - Erythematous mucosa in the cardia, gastric body and antrum. Biopsied. - No gross lesions in the first portion of the duodenum. Recommendation: - Discharge patient to home. - Resume previous diet. - Continue present medications. - Await pathology results. Procedure Code(s): --- Professional --- 52215, Esophagogastroduodenoscopy, flexible, transoral; with dilation of gastric/duodenal stricture(s) (eg, balloon, bougie) 85817, 59, Esophagogastroduodenoscopy, flexible, transoral; with biopsy, single or multiple CPT copyright 2017 [employer]. All rights reserved. The codes documented in this report are preliminary and upon oxygen therapy technician review may be revised to meet current compliance requirements. Vinicius Paniagua DO 10/31/2022 4:24:31 PM This report has been signed electronically. Number of Addenda: 0 Note Initiated On: 10/31/2022 3:40 PM
--- NOTE | 2022-10-31 16:25 | OP.CCLET_ITS ---
10/31/2022 Mimi Garibay Do Re : Upper GI endoscopy procedure for Fiorella Núñez Dear Lani This procedure was performed on Monday, October 31, 2022. My impressions and recommendations are as follows: Impressions : - Z-line irregular, 38 cm from the incisors. Biopsied. - Erythematous mucosa in the cardia, gastric body and antrum. Biopsied. - No gross lesions in the first portion of the duodenum. Recommendations : - Discharge patient to home. - Resume previous diet. - Continue present medications. - Await pathology results. My findings are described in the full procedure note, which is enclosed. If I can be of further assistance, please feel free to contact me at . Sincerely, Vinicius Paniagua, 10/31/2022 4:24:31 PM This report has been signed electronically.
--- NOTE | 2022-10-31 16:28 | OP.COLON_ITS ---
Patient Name: Fiorella Núñez Procedure Date: 10/31/2022 3:58 PM Date of : 1980 Age: 42 Procedure: Colonoscopy Indications: Generalized abdominal pain, Clinically significant diarrhea of unexplained origin Providers: Vinicius Panaigua DO Referring MD: Mimi Garibay Do Medicines: Monitored Anesthesia Care Patient Profile: This is a 42 year old female. Refer to note in patient chart for documentation of history and physical. Patient has symptoms of chronic abdominal cramping, acute epigastric abdominal pain, chronic dyspepsia and chronic nausea. Last Colonoscopy: date unknown. Unable to locate last colonoscopy report. Complications: No immediate complications. Procedure: Pre-Anesthesia Assessment: - Prior to the procedure, a History and Physical was performed, and patient medications and allergies were reviewed. The patient is competent. The risks and benefits of the procedure and the sedation options and risks were discussed with the patient. All questions were answered and informed consent was obtained. Patient identification and proposed procedure were verified by the physician. Mental Status Examination: normal. Prophylactic Antibiotics: The patient does not require prophylactic antibiotics. Prior Anticoagulants: The patient has taken no previous anticoagulant or antiplatelet agents. ASA Grade Assessment: II - A patient with mild systemic disease. After reviewing the risks and benefits, the patient was deemed in satisfactory condition to undergo the procedure. The anesthesia plan was to use monitored anesthesia care (MAC). Immediately prior to administration of medications, the patient was re-assessed for adequacy to receive sedatives. The heart rate, respiratory rate, oxygen saturations, blood pressure, adequacy of pulmonary ventilation, and response to care were monitored throughout the procedure. The physical status of the patient was re-assessed after the procedure. After I obtained informed consent, the scope was passed under direct vision. Throughout the procedure, the patient's blood pressure, pulse, and oxygen saturations were monitored continuously. The colonoscope was introduced through the anus and advanced to the terminal ileum. The colonoscopy was performed without difficulty. The patient tolerated the procedure well. The quality of the bowel preparation was good. Scope In: 4:00:55 PM Scope Withdrawal Time 0 hours 9 minutes 24 seconds Scope Out: 4:13:15 PM Total Procedure Duration Time 0 hours 12 minutes 20 seconds Findings: The perianal exam findings include poor rectal tone and a grade 1 rectal prolapse. An area of mildly congested mucosa was found in the recto-sigmoid colon, at the splenic flexure and at the hepatic flexure. Biopsies were taken with a cold forceps for histology. Verification of patient identification for the specimen was done. Estimated blood loss was minimal. The terminal ileum appeared normal. Biopsies were taken with a cold forceps for histology. Verification of patient identification for the specimen was done. Estimated blood loss was minimal. A 5 mm polyp was found in the splenic flexure. The polyp was sessile. The polyp was removed with a cold snare. Resection and retrieval were complete. Verification of patient identification for the specimen was done. Estimated blood loss was minimal. Impression: - Abnormal perianal exam. - Congested mucosa in the recto-sigmoid colon, at the splenic flexure and at the hepatic flexure. Biopsied. - The examined portion of the ileum was normal. Biopsied. - One 5 mm polyp at the splenic flexure, removed with a cold snare. Resected and retrieved. Recommendation: - Repeat colonoscopy in 5 years for surveillance. - Return to GI office. - Continue present medications. Procedure Code(s): --- Professional --- 88021, Colonoscopy, flexible; with removal of tumor(s), polyp(s), or other lesion(s) by snare technique 94665, 59, Colonoscopy, flexible; with biopsy, single or multiple CPT copyright 2017 [employer]. All rights reserved. The codes documented in this report are preliminary and upon professor of psychiatry review may be revised to meet current compliance requirements. Vinicius Paniagua DO 10/31/2022 4:28:27 PM This report has been signed electronically. Number of Addenda: 0 Note Initiated On: 10/31/2022 3:58 PM
--- NOTE | 2022-10-31 16:28 | OP.CCLET_ITS ---
10/31/2022 Mimi Garibay Do Re : Colonoscopy procedure for Fiorella Núñez Dear Lnai This procedure was performed on Monday, October 31, 2022. My impressions and recommendations are as follows: Impressions : - Abnormal perianal exam. - Congested mucosa in the recto-sigmoid colon, at the splenic flexure and at the hepatic flexure. Biopsied. - The examined portion of the ileum was normal. Biopsied. - One 5 mm polyp at the splenic flexure, removed with a cold snare. Resected and retrieved. Recommendations : - Repeat colonoscopy in 5 years for surveillance. - Return to GI office. - Continue present medications. My findings are described in the full procedure note, which is enclosed. If I can be of further assistance, please feel free to contact me at . Sincerely, Vinicius Paniagua, 10/31/2022 4:28:27 PM This report has been signed electronically.
== END 2022-10-31 17:07 | disposition home or self-care (01) ==
LOC: EN 13:52 → AC 13:53
PROVIDERS: PCP Internal Medicine; Referring Provider Internal Medicine; Visit Provider Internal Medicine Gastroenterology
PROC: 0DJD8ZZ Inspection of Lower Intestinal Tract, Via Natural or Artificial Opening Endoscopic (ICD-10-PCS; CPT 45378; principal; 2022-10-31 15:10)
DX: K31.1 Adult hypertrophic pyloric stenosis (principal); D12.3 Benign neoplasm of transverse colon; K62.3 Rectal prolapse; K52.9 Noninfective gastroenteritis and colitis, unspecified; R12 Heartburn; F17.200 Nicotine dependence, unspecified, uncomplicated; Z90.49 Acquired absence of other specified parts of digestive tract
CPT/HCPCS: 45385; 43239; 43245; 45380; 88305; 88313; 88342; J7120; J2405